=== PATIENT | female | born 1940 | race Caucasian/White ===

== ENCOUNTER 2017-01-22 16:38 | Emergency (ER) | payer OTHER ==
[~2017-01-22] VITALS: Ht 157.5 cm; Wt 68.7 kg
[~2017-01-22 16:38] MED LIST: Ecotrin PO; GLIPIZIDE10 M1; GLUCOPHAGE500 MG PO; Glucotrol PO; IMDUR30 MG PO; K-DUR10 ME2 PO; KLOR-CON 1010 MEQ; LASIX40 MG; LASIX40 MG PO; LOPRESSOR25 MG PO; LOVASTATIN20 MG PO; ZESTRIL,PRINIVI20 MG; Zestril,Prinivil PO
[2017-01-22 17:54] LABS: ADD MIUA? YES; BILIRUBIN NEGATIVE; BLOOD NEGATIVE; COLOR YELLOW ((YELLOW)); GLUCOSE (STRIP) NEGATIVE; KETONES NEGATIVE; LEUKOCYTES LARGE; NITRITE NEGATIVE; PROTEIN (STRIP) 30; SPECIFIC GRAVITY 1.013 (1.000-1.030); UROBILINOGEN 0.2 MG/DL (0.2-1.0)
[2017-01-22 17:57] LABS: BACTERIA RARE /HPF; EPITHELIAL CELLS 1+ /HPF; HYALINE CASTS 20-30 /LPF; MUCUS TRACE /LPF; WHITE BLOOD CELLS TNTC /HPF (0-5)
[2017-01-22 18:06] LABS: MCH 30.7 PG (29.0-34.0); MCHC 32.5 G/DL (30.0-36.0); MCV 94.5 FL (83-99); MEAN PLAT.VOLUME 10.6 uM^3 (9.5-12.4); PLATELET COUNT 157 K/uL (156-360); RBC DIS.WIDTH-CV 14.6 % (11.8-14.6); RBC DIS.WIDTH-SD 51.4 % (39-53); RED BLOOD COUNT 3.81 M/uL (3.80-5.20); WHITE BLOOD COUNT 6.4 K/uL (4.1-10.2)
[2017-01-22 18:14] LABS: CHLORIDE 101 mEq/L (99-109); POTASSIUM 4.3 mEq/L (3.7-5.4); SODIUM 138 mEq/L (136-147)
[2017-01-22 18:16] LABS: GLUCOSE 261 mg/dL (70-99)
[2017-01-22 18:17] LABS: ANION GAP 12 MEQ/L (2-14)
[2017-01-22 18:20] LABS: GFR ESTIMATE (CALCULATED) 39 mL/min/
[2017-01-22 18:21] LABS: UREA NITROGEN (BUN) 29 mg/dL (9-23)
[2017-01-22 18:26] LABS: TROP-I INTERPRETATION NEGATIVE; TROPONIN-I 0.04 ng/mL (0.0-0.30)
[2017-01-22] MEDS ORDERED: MACROBID100 MG PO (19:52)
[2017-01-22 20:17] VITALS: BP 127/77
== END 2017-01-22 20:00 | disposition home or self-care (01) ==
LOC: EME 16:38
PROVIDERS: Physician Assistant
DX: R42 Dizziness and giddiness (principal); N39.0 Urinary tract infection, site not specified; E11.9 Type 2 diabetes mellitus without complications; I10 Essential (primary) hypertension; E78.5 Hyperlipidemia, unspecified; Z79.84 Long term (current) use of oral hypoglycemic drugs
CPT/HCPCS: 71020; 80048; 81003; 84484; 85027; 93005; 99281; 99283

== ENCOUNTER 2017-09-09 08:17 | Day surgery (SDC) | payer OTHER ==
[~2017-09-09 08:17] MED LIST changes: +MACROBID100 MG PO
== END 2017-09-09 18:25 | disposition home or self-care (01) ==
LOC: CATH 08:17
PROVIDERS: Internal Medicine Interventional Cardiology
DX: I25.10 Atherosclerotic heart disease of native coronary artery without angina pectoris (principal); I35.0 Nonrheumatic aortic (valve) stenosis; I34.0 Nonrheumatic mitral (valve) insufficiency; I27.20 Pulmonary hypertension, unspecified; I11.9 Hypertensive heart disease without heart failure; E78.2 Mixed hyperlipidemia; E11.9 Type 2 diabetes mellitus without complications; I25.5 Ischemic cardiomyopathy; Z79.84 Long term (current) use of oral hypoglycemic drugs; Z79.82 Long term (current) use of aspirin; Z85.3 Personal history of malignant neoplasm of breast
CPT/HCPCS: 82948; 93005; C1769; C1894; J1644; J2250; J2405; J3010

== ENCOUNTER → 2017-09-13 | Outpatient (CLI) | payer OTHER ==
[2017-09-13 12:56] LABS: BASE EXCESS 1.5 mEq/L (-3 to +3); BICARBONATE 25.9 mEq/L (22-26); CARBOXY HGB 1.8 % (0-5); METHEMOGLOBIN 0.9 % (0-1.5); PCO2 39 mm Hg (35-45); PO2 82 mm Hg (80-100); pH 7.43 (7.35-7.45)
[2017-09-13 12:57] LABS: FI02 0.21 %; SITE LR; TOTAL RESP RATE 18 resp/min
== END | disposition home or self-care (01) ==
LOC: RES 12:41
PROVIDERS: Internal Medicine Cardiovascular Disease
DX: Z01.811 Encounter for preprocedural respiratory examination (principal); I35.0 Nonrheumatic aortic (valve) stenosis; J98.8 Other specified respiratory disorders; J98.4 Other disorders of lung; R94.2 Abnormal results of pulmonary function studies
CPT/HCPCS: 36600; 82803; 94060; 94727; 94729

== ENCOUNTER 2017-11-19 18:35 | Inpatient (IN) | payer OTHER ==
[~2017-11-19] VITALS: Ht 157.5 cm; Wt 71.0 kg
[~2017-11-19 18:35] MED LIST changes: +ATORVASTATIN CA80 MG PO; -GLUCOPHAGE500 MG PO; +GLUCOTROL XL10 MG PO; -Glucotrol PO; +LISINOPRIL20 MG PO; -LOPRESSOR25 MG PO; -LOVASTATIN20 MG PO; +METFORMIN HCL500 M1 PO; +METOPROLOL SUCC50 MG PO; -Zestril,Prinivil PO
[2017-11-19 19:00] LABS: BASOPHIL (%) 0.4 % (0-1); EOSINOPHIL (%) 0.4 % (0-5); HEMATOCRIT 25.4 % (36.0-46.0); HEMOGLOBIN 7.9 G/DL (11.9-15.5); IMMATURE GRANULOCYTE (%) 0.4 % (0.0-0.7); LYMPHOCYTE (%) 37.6 % (15-42); MCH 28.8 PG (29.0-34.0); MCHC 31.1 G/DL (30.0-36.0); MCV 92.7 FL (83-99); MONOCYTE (%) 9.7 % (3-12); MONOCYTE COUNT 0.8 K/uL (0-0.8); NEUTROPHIL (%) 51.5 % (45-76); NEUTROPHIL COUNT 4.2 K/uL (1.8-6.4); NRBC (%) 0.7 /100 WBC (0-0); PLATELET COUNT 214 K/uL (156-360); RBC DIS.WIDTH-CV 18.5 % (11.8-14.6); RBC DIS.WIDTH-SD 62.4 % (39-53); RED BLOOD COUNT 2.74 M/uL (3.80-5.20); WHITE BLOOD COUNT 8.1 K/uL (4.1-10.2)
[2017-11-19 19:07] LABS: CHLORIDE 106 mEq/L (99-109); POTASSIUM 4.9 mEq/L (3.7-5.4); SODIUM 137 mEq/L (136-147)
[2017-11-19 19:09] LABS: GLUCOSE 253 mg/dL (70-99); TOTAL PROTEIN 6.6 g/dL (6.4-8.3)
[2017-11-19 19:11] LABS: TOTAL BILIRUBIN 0.5 mg/dL (0.0-1.0)
[2017-11-19 19:12] LABS: ALKALINE PHOSPHATASE 91 IU/L (3-129)
[2017-11-19 19:13] LABS: CREATININE 1.1 mg/dL (0.6-1.3); GFR ESTIMATE (CALCULATED) 51 mL/min/
[2017-11-19 19:14] LABS: AST (GOT) 44 IU/L (2-34); UREA NITROGEN (BUN) 35 mg/dL (9-23)
[2017-11-19 19:15] LABS: ALT (GPT) 28 IU/L (3-49)
[2017-11-19 19:16] LABS: LIPASE 56 U/L (1.0-51.0)
[2017-11-19 19:18] LABS: INTER. NORMALIZED RATIO 1.3
[2017-11-19 19:21] LABS: PTT 22.6 SEC (25-37)
[2017-11-19] MEDS ORDERED: SYMBICORT60 INHALAT IH (20:11)
[2017-11-19] MEDS ORDERED: ASPIRIN325 MG PO (20:11)
[2017-11-19] MEDS ORDERED: LO-DOSE ASPIRIN81 M1 PO (20:11)
[2017-11-19] MEDS ORDERED: NITROGLYCERIN0.4 MG SL (20:12)
[2017-11-19 22:00] VITALS: BP 107/73
[2017-11-19 22:16] VITALS: BP 94/48
[2017-11-19 23:01] VITALS: BP 91/57
[2017-11-20] VITALS (21 sets, daily range): BP systolic 86–124; BP diastolic 36–91
[2017-11-20 00:50] LABS: HEMATOCRIT 27.3 % (36.0-46.0); HEMOGLOBIN 8.7 G/DL (11.9-15.5); MCV 91.9 FL (83-99)
[2017-11-20 02:51] LABS: APPEARANCE CLEAR ((CLEAR)); BILIRUBIN NEGATIVE; BLOOD NEGATIVE; COLOR YELLOW ((YELLOW)); GLUCOSE (STRIP) NEGATIVE; KETONES NEGATIVE; LEUKOCYTES NEGATIVE; NITRITE NEGATIVE; PROTEIN (STRIP) NEGATIVE; SPECIFIC GRAVITY 1.017 (1.000-1.030); UCUL ADDED? NO; UROBILINOGEN 0.2 MG/DL (0.2-1.0)
[2017-11-20 06:37] LABS: INTER. NORMALIZED RATIO 1.3
[2017-11-20 06:53] LABS: CHLORIDE 110 MEQ/L (99-109); CREATININE 0.9 MG/DL (0.6-1.3); GFR ESTIMATE (CALCULATED) > 59 mL/min/; GLUCOSE 170 mg/dL (70-99); POTASSIUM 4.4 MEQ/L (3.7-5.4); SODIUM 142 MEQ/L (136-147); UREA NITROGEN (BUN) 32 mg/dL (9-23)
[2017-11-20 08:14] LABS: HEMATOCRIT 31.1 % (36.0-46.0); HEMOGLOBIN 10.1 G/DL (11.9-15.5); MCH 28.9 PG (29.0-34.0); MCHC 32.5 G/DL (30.0-36.0); MCV 88.9 FL (83-99); RBC DIS.WIDTH-CV 17.8 % (11.8-14.6); RBC DIS.WIDTH-SD 55.5 % (39-53); WHITE BLOOD COUNT 7.4 K/uL (4.1-10.2)
[2017-11-20 08:37] LABS: HEMATOLOGY COMMENT 1 SN; PLAT.SUFFICIENCY ADEQUATE
[2017-11-20 08:38] LABS: PLATELET COUNT 138 K/uL (156-360)
[2017-11-20 10:01] LABS: HEMOGLOBIN A1c (GLYCOHEMOGLOB) 7.3 % (Below 5.7)
[2017-11-20 11:48] LABS: HEMATOCRIT 31.2 % (36.0-46.0); HEMOGLOBIN 9.9 G/DL (11.9-15.5); MCV 90.7 FL (83-99)
[2017-11-20 18:34] LABS: HEMATOCRIT 30.1 % (36.0-46.0); HEMOGLOBIN 9.4 G/DL (11.9-15.5); MCV 91.5 FL (83-99)
[2017-11-21] VITALS (7 sets, daily range): BP systolic 97–120; BP diastolic 53–64
[2017-11-21 06:04] LABS: BASOPHIL (%) 0.4 % (0-1); EOSINOPHIL (%) 0 % (0-5); HEMATOCRIT 29.6 % (36.0-46.0); HEMOGLOBIN 9.1 G/DL (11.9-15.5); IMMATURE GRANULOCYTE (%) 0.6 % (0.0-0.7); LYMPHOCYTE (%) 10.5 % (15-42); LYMPHOCYTE COUNT 0.7 K/uL (1.0-2.8); MCH 28.3 PG (29.0-34.0); MCHC 30.7 G/DL (30.0-36.0); MCV 92.2 FL (83-99); MONOCYTE (%) 7.4 % (3-12); MONOCYTE COUNT 0.5 K/uL (0-0.8); NEUTROPHIL (%) 81.1 % (45-76); NEUTROPHIL COUNT 5.7 K/uL (1.8-6.4); NRBC (%) 0.4 /100 WBC (0-0); PLATELET COUNT 138 K/uL (156-360); RBC DIS.WIDTH-CV 18.6 % (11.8-14.6); RBC DIS.WIDTH-SD 61.1 % (39-53); RED BLOOD COUNT 3.21 M/uL (3.80-5.20); WHITE BLOOD COUNT 7.1 K/uL (4.1-10.2)
[2017-11-21 06:37] LABS: CHLORIDE 112 MEQ/L (99-109); CREATININE 0.9 MG/DL (0.6-1.3); GFR ESTIMATE (CALCULATED) > 59 mL/min/; GLUCOSE 184 mg/dL (70-99); POTASSIUM 3.9 MEQ/L (3.7-5.4); SODIUM 142 MEQ/L (136-147); UREA NITROGEN (BUN) 25 mg/dL (9-23)
[2017-11-21 18:26] LABS: HEMATOCRIT 30.7 % (36.0-46.0); HEMOGLOBIN 9.4 G/DL (11.9-15.5)
[2017-11-22 03:59] VITALS: BP 102/54
[2017-11-22 05:19] LABS: BASOPHIL (%) 0.6 % (0-1); EOSINOPHIL (%) 0.2 % (0-5); HEMATOCRIT 28.9 % (36.0-46.0); HEMOGLOBIN 9.3 G/DL (11.9-15.5); IMMATURE GRANULOCYTE (%) 0.3 % (0.0-0.7); LYMPHOCYTE (%) 13.9 % (15-42); LYMPHOCYTE COUNT 0.9 K/uL (1.0-2.8); MCH 29.6 PG (29.0-34.0); MCHC 32.2 G/DL (30.0-36.0); MONOCYTE (%) 11.4 % (3-12); MONOCYTE COUNT 0.7 K/uL (0-0.8); NEUTROPHIL (%) 73.6 % (45-76); NEUTROPHIL COUNT 4.7 K/uL (1.8-6.4); NRBC (%) 0.8 /100 WBC (0-0); PLATELET COUNT 116 K/uL (156-360); RBC DIS.WIDTH-CV 18.6 % (11.8-14.6); RBC DIS.WIDTH-SD 60.3 % (39-53); RED BLOOD COUNT 3.14 M/uL (3.80-5.20); WHITE BLOOD COUNT 6.3 K/uL (4.1-10.2)
[2017-11-22 09:05] VITALS: BP 118/65
[2017-11-22 12:04] VITALS: BP 113/71
[2017-11-22] MEDS ORDERED: LISINOPRIL10 MG PO (15:50)
[2017-11-22] MEDS ORDERED: METOPROLOL SUCC25 MG PO (15:50)
[2017-11-22] MEDS ORDERED: FUROSEMIDE20 MG PO (15:51)
[2017-11-22] MEDS ORDERED: PROTONIX40 MG PO (15:53)
[2017-11-23] MEDS ORDERED: K-DUR10 MEQ PO (07:22)
== END 2017-11-22 17:15 | disposition home or self-care (01) | DRG 377 ==
LOC: EME 18:35 → 4WEST 20:07 → EDOF 20:07 → 4EAST 20:07 → ENRESERV 20:08 → ENRESERVDT 20:25 → ENRESERV 20:25 → ENRESERVTM 20:25 → 4WEST 21:59 → 4EAST 22:20 → 4WEST 11-20 17:30 → ENRESERV 11-20 20:03 → CANRESERV 11-20 20:04 → ENRESERV 11-20 20:07 → 4EAST 11-20 20:59 → ENRESERV 11-22 11:10 → CANRESERV 11-22 11:10 → 4EAST 11-22 17:15
PROVIDERS: Emergency Medicine; Specialist; Student in an Organized Health Care Education/Training Program; Surgery
PROC: 30233N1 Transfusion of Nonautologous Red Blood Cells into Peripheral Vein, Percutaneous Approach (ICD-10-PCS; principal; 2017-11-19)
PROC: 0DJ08ZZ Inspection of Upper Intestinal Tract, Via Natural or Artificial Opening Endoscopic (ICD-10-PCS; 2017-11-20)
DX: K92.0 Hematemesis (principal); J96.01 Acute respiratory failure with hypoxia; I50.23 Acute on chronic systolic (congestive) heart failure; E87.2 Acidosis; R57.8 Other shock; D62 Acute posthemorrhagic anemia; I25.10 Atherosclerotic heart disease of native coronary artery without angina pectoris; K44.9 Diaphragmatic hernia without obstruction or gangrene; E11.9 Type 2 diabetes mellitus without complications; I11.0 Hypertensive heart disease with heart failure; I35.0 Nonrheumatic aortic (valve) stenosis; D50.0 Iron deficiency anemia secondary to blood loss (chronic); I27.20 Pulmonary hypertension, unspecified; E78.5 Hyperlipidemia, unspecified; I25.5 Ischemic cardiomyopathy; Z90.11 Acquired absence of right breast and nipple; Z79.82 Long term (current) use of aspirin; Z85.3 Personal history of malignant neoplasm of breast; Z87.11 Personal history of peptic ulcer disease
CPT/HCPCS: 71045; 71046; 80048; 80053; 81003; 82948; 83036; 83605; 83690; 85014; 85018; 85025; 85027; 85610; 85730; 86850; 86900; 86901; 86920; 87641; 93970; 94640; 94640 76; 94760; 94799; 99281; 99285; C9113; J1815; J1940; J2060; J7030; P9016